=== PATIENT | female | born 1955 ===

== ENCOUNTER 2021-11-16 08:55 | Outpatient (CLI) | payer OTHER, MEDICARE, MEDICAID, SELFPAY ==
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
== END 2021-11-16 08:56 | disposition home or self-care (01) ==
LOC: ANHNEURO 09:02
PROVIDERS: PCP Internal Medicine Infectious Disease; Visit Provider Internal Medicine
DX: G40.909 Epilepsy, unspecified, not intractable, without status epilepticus (principal)
CPT/HCPCS: 95816

== ENCOUNTER 2022-03-31 12:16 | Emergency (ER) | payer MEDICARE, OTHER, MEDICAID, SELFPAY ==
[2022-03-31 12:31] VITALS: BP 178/77; PULSE 79; RESP 18; TEMP 36.5; O2SAT 97
--- NOTE | 2022-03-31 12:31 | ED.EYEPROB ---
HPI - Eye Problem General Chief complaint: Eye Problems Stated complaint: eye drainage Time Seen by Provider: 03/31/22 12:40 Source: patient Mode of arrival: ambulatory Limitations: no limitations History of Present Illness HPI Narrative: 66 y/o female presented for c/o right lower eye pain and swelling for 3 days. Today woke with more swelling to the upper cheek. Reports small amount of yellow drainage. Denies injury or foreign body, denies vision changes, photophobia, headache or dizziness. Tylenol helps for pain. Patient also end[place] and states she often has sneezing and coughing related to their harvesting or cutting the grass, she is requesting treatment options. Denies sob, wheezing, fever or chills. MD chief complaint: eye pain Related Data Home Medications Medication Instructions Recorded Confirmed atorvastatin 80 mg tablet (Lipitor) 80 mg PO DAILY 03/31/22 03/31/22 clopidogrel 75 mg tablet (Plavix) 75 mg PO DAILY 03/31/22 03/31/22 metoprolol tartrate 25 mg tablet 25 mg PO BID 03/31/22 03/31/22 omeprazole 20 mg capsule,delayed 20 mg PO DAILY 03/31/22 03/31/22 release ropinirole 1 mg tablet 1 mg PO DAILY 03/31/22 03/31/22 Allergies Allergy/AdvReac Type Severity Reaction Status Date / Time morphine Allergy Unknown Unverified 02/21/15 14:13 Penicillins Allergy Unknown Unverified 02/21/15 14:13 phenytoin Allergy Unknown Unverified 02/21/15 14:13 Sulfa (Sulfonamide Allergy Unknown Unverified 02/21/15 14:13 Antibiotics) aspirin Allergy Unknown Verified 03/31/22 12:36 codeine Allergy Unknown Verified 03/31/22 12:36 Review of Systems Review of Systems: CONSTITUTIONAL: Denies body aches, fever, chills EYES:Endorses swelling, redness and pain to right eye ENT: Denies rhinorrhea, congestion, sore throat, or otalgia. CARDIOVASCULAR: Denies chest pain, palpitations RESPIRATORY: Denies cough or dyspnea. SKIN: Denies rash, itching, or wounds. NEUROLOGIC: Denies headache, numbness, tingling, or weakness. All systems reviewed & are unremarkable except as noted in HPI and below PMFSH Comments At time of signature, I have reviewed and agree with nursing past medical, surgical, social and family history unless otherwise noted. Please see nursing chart for further information. There is no relevant family history pertinent to the presenting complaint Exam Narrative: GENERAL: Well-appearing HEAD: Normocephalic, atraumatic. EYES: Right lower eye lid swelling, redness and yellow drainage, tender with palpation c/w stye. Right lower eye/ upper cheek with mild swelling and red discoloration c/w bruising vs cellulitis No conjunctival injection. EOMI. Lid eversion showed no FB. ENT: Mucous membranes pink and moist. No rhinorrhea. TMs normal bilaterally. Throat normal. Uvula midline. CHEST: Clear to auscultation. HEART: Regular rate and rhythm. SKIN: Warm, dry, no rash. Normal skin turgor. NEURO: No focal deficits. Alert and oriented x3 PSYCH: Normal affect. Course Course Emergency Course: Patient is aware of diagnosis, understands and agrees to treatment plan. Anticipatory guidance given. Patient agrees to follow-up as directed and is aware of reasons to seek care at the emergency department. Portions of this record may have been created with voice recognition software Level of Care: Express Care Visit MDM - Eye Problem MDM Narrative Medical decision making narrative: Advised supportive measures and signs/symptoms to go to the ER. Pt is appropriate for outpt treatment and f/u. Differential Diagnosis Differential diagnosis: Likely corneal abrasion, conjunctivitis, acute iritis and other Discharge Plan Discharge Clinical Impression: External hordeolum, Allergies Patient Disposition: Home, Self-Care Condition: Stable Instructions: Stye (ED) Additional Instructions: In most cases, a stye will disappear on its own in a few days Apply warm, moist compresses on
== END 2022-03-31 12:55 | disposition home or self-care (01) ==
PROVIDERS: Emergency Provider Nurse Practitioner Family; PCP Internal Medicine
DX: H00.012 Hordeolum externum right lower eyelid (principal); T78.40XA Allergy, unspecified, initial encounter; E78.00 Pure hypercholesterolemia, unspecified; I10 Essential (primary) hypertension; F17.290 Nicotine dependence, other tobacco product, uncomplicated; K21.9 Gastro-esophageal reflux disease without esophagitis; G25.81 Restless legs syndrome
CPT/HCPCS: 99213; G0463

== ENCOUNTER 2023-05-29 13:39 | Emergency (ER) | payer OTHER, SELFPAY ==
[2023-05-29 13:56] VITALS: BP 150/62; PULSE 86; RESP 24; TEMP 36.6; O2SAT 96
--- NOTE | 2023-05-29 14:13 | ED.GENADULT ---
HPI - General Adult General Chief complaint: Neck Pain/Injury Stated complaint: Neck Pain Time Seen by Provider: 05/29/23 13:43 Source: patient Mode of arrival: ambulatory Limitations: no limitations History of Present Illness HPI narrative: Patient is a 67-year-old female that presents with neck pain that started this morning. Denies any injury. Patient states hurts on the right side of her neck and it is painful to turn her head side to side. Denies any fever, chills, nausea, vomiting, diarrhea. Patient also reports cough for 3 weeks that is worsening and has her up at night. Patient states she has multiple coughing fits. Denies any sore throat, sinus pressure or ear pain. Does report seasonal allergies and states this started as just congestion when they were harvesting crops round her house. Patient does not take any daily allergy medicine. Patient has taken Tylenol and used Aspercreme on neck today. Denies any shooting pain down the arms, numbness, tingling or weakness. Related Data Home Medications Medication Instructions Recorded Confirmed atorvastatin 80 mg tablet (Lipitor) 80 mg PO DAILY 03/31/22 05/29/23 clopidogrel 75 mg tablet (Plavix) 75 mg PO DAILY 03/31/22 05/29/23 metoprolol tartrate 25 mg tablet 25 mg PO BID 03/31/22 05/29/23 omeprazole 20 mg capsule,delayed 20 mg PO DAILY 03/31/22 05/29/23 release ropinirole 1 mg tablet 1 mg PO DAILY 03/31/22 05/29/23 Allergies Allergy/AdvReac Type Severity Reaction Status Date / Time morphine Allergy Unknown Unverified 02/21/15 14:13 Penicillins Allergy Unknown Unverified 02/21/15 14:13 phenytoin Allergy Unknown Unverified 02/21/15 14:13 Sulfa (Sulfonamide Allergy Unknown Unverified 02/21/15 14:13 Antibiotics) aspirin Allergy Unknown Verified 03/31/22 12:36 codeine Allergy Unknown Verified 03/31/22 12:36 Review of Systems Review of Systems: All systems reviewed & are unremarkable except as noted in HPI and below Constitutional: Constitutional: Denies body ache(s), Denies chills, Denies fatigue, Denies fever(s), Denies headache(s), Denies malaise and Denies weakness Eyes: Eyes: Denies blurry vision, Denies irritation and Denies loss of vision ENT: Denies otalgia, Denies headache(s), Reports nasal discharge, Reports neck pain, Denies sinus pain and Denies sore throat Cardiovascular: Cardiovascular: Denies chest pain, Denies irregular heart rhythm and Denies dyspnea Respiratory: Respiratory: Reports cough and Denies dyspnea Gastrointestinal: Gastrointestinal: Denies abdominal pain, Denies melena, Denies hematochezia, Denies diarrhea, Denies nausea and Denies vomiting Musculoskeletal: Musculoskeletal: Denies back pain, Denies myalgias and Denies arthralgias Integumentary/Breasts: Skin/Breast: Denies pruritus and Denies rash Neurologic: Denies headache(s), Denies loss of vision and Denies weakness Psychiatric: Psychiatric: Reports no additional psychiatric complaints Endocrine: Endocrine: Denies fatigue PMFSH Comments At time of signature, agree with nursing past medical, surgical, social and family history. There is no relevant family history pertinent to the presenting complaint. Exam Const: General: cooperative, healthy appearing, comfortable, no acute distress and well nourished Nutritional Appearance: well nourished Orientation/consciousness: patient oriented x3 Limitations: no limitations HENMT: Head: normal to inspection, normocephalic and atraumatic Ears: hearing grossly normal bilaterally and external ears normal Face/Nose/Sinus: Normal external nose present, normal facial exam and face symmetric Face and sinus: normal facial exam and face symmetric Mouth: Yes lip normal Eyes: General: appearance normal, both eyes and all related structures Alignment and Position: alignment normal and position normal Periorbital: periorbital findings normal Eyelids: eyelids normal Pupils: Equal, round and reactive pupils present EOM: EOMs i
== END 2023-05-29 14:55 | disposition home or self-care (01) ==
PROVIDERS: Emergency Provider Nurse Practitioner Family; PCP Family Medicine
DX: S16.1XXA Strain of muscle, fascia and tendon at neck level, initial encounter (principal); X58.XXXA Exposure to other specified factors, initial encounter; J06.9 Acute upper respiratory infection, unspecified; R05.9 Cough, unspecified; E78.00 Pure hypercholesterolemia, unspecified; I10 Essential (primary) hypertension; F17.290 Nicotine dependence, other tobacco product, uncomplicated; K21.9 Gastro-esophageal reflux disease without esophagitis; G25.81 Restless legs syndrome
CPT/HCPCS: 99213; G0463